=== PATIENT | female | born 1990 | race African-American/Black ===

== ENCOUNTER 2018-01-03 18:12 | Inpatient (IN) | payer OTHER ==
[~2018-01-03] VITALS: Ht 167.6 cm; Wt 73.0 kg
[~2018-01-03 18:12] MED LIST: FERRALET 90 TA1 EACH PO; IBUPROFEN800 MG PO; NATURAL IRON65 MG PO; PERCOCET 325 MG1 TA2 PO; PRENATAL TABLE1 EAC2 PO; PRENATAL1 TA2 PO; ROBAXIN-750750 M1 PO; TAMIFLU75 M1 PO; ZOFRAN ODT4 M1 SL
[2018-01-03 21:51] LABS: ABSOLUTE BASOPHIL COUNT 0 /CUMM (0.0-0.2); ABSOLUTE EOSINOPHIL COUNT 0.1 /CUMM (0.0-0.7); ABSOLUTE GRANULOCYTE CT 5.8 /CUMM (1.4-6.5); ABSOLUTE MONOCYTE COUNT 0.7 /CUMM (0.10-0.60); BASOPHIL % 0.3 % (0.0-2.0); EOSINOPHIL % 1.1 % (0-5); GRANULOCYTE % 66.6 % (42.2-75.2); HEMATOCRIT 26.7 % (37-47); MEAN CORPUSCULAR HGB CONC 32.4 G/DL (33.0-37.0); MEAN CORPUSCULAR VOLUME 83.3 FL (81.0-99.0); MEAN PLATELET VOLUME 9.5 FL (7.4-10.4); PLATELET COUNT 165 /CUMM (130-400); RBC DISTRIBUTION WIDTH 16.4 % (11.5-14.5); RED BLOOD CELL CT 3.21 /CUMM (4.20-5.40); WHITE BLOOD CELL COUNT 8.6 /CUMM (4.8-10.8)
[2018-01-03 23:35] VITALS: BP 114/59
--- NOTE | 2018-01-04 13:25 | Operative Report ---
Operative/Inv Procedure Report Surgery Date: 01/04/18 Name of Procedure: rEPEAT LOW FLAP TRANSVERSE SECTIONVIA pFANNENSTIEL SKIN INCISION LYSIS OF ADHESIONS Pre-Operative Diagnosis: PREVIOUS SECTION 36 WEEKS LABOR Post-Operative Diagnosis: SAME ADHESIONS Estimated Blood Loss: 500 Surgeon/Dredge Or Barge Shore Hand: Latasha Segundo MD and Jordy Grewal MD Anesthesia: block Operative/Procedure Note Note: Patient was having the operating room placed on position after adequate anesthesia patient placed in dorsal supine position the vagina from dorsal fashion bladder was catheterized examination anesthesia performed at this point patient was returned spine position skin testing was performed and found to be adequate for surgery patient tolerated that well the abdomen was prepped and draped so fashion through a old Pfannenstiel skin incision skin was cut was carried down to rectus fascia using a Bovie on the rectus sheath was dissected bluntly as well as sharply peritoneal cavity was entered high into the abdomen place of adhesions were performed from the rectus sheath onto the peritoneum low blade the [place] was placed lower and incision the visceral peritoneum of the uterus was dissected anteriorly a bladder flap was developed well in the lower uterine segment the uterus was nicked into with the back of the knife on bladder blade had been replaced to protect the bladder the was delivered over the abdominal wall suction well until clear after on since removed field cord was doubly clamped and cut infant was handed laser engraver waiting delivering to aid in resuscitation since was delivered manually noted to be intact uses wiped clean with 2R last insurance free of adherent membranes uses oversewn running locking suture was indicated interrupted [id number] is well the uterus was on contracted using all intravenous Pitocin as well as intramyometrial Pitocin patient aren't that well all uses turned to abdominal cavity irrigated copious amounts once until clear interrupted [id number] hemostasis the abdomen was irrigated once again with copious amounts warm saline to ensure hemostasis peritoneum was reapproximated 0 fascia was reapproximated using 0 skin was reapproximated using britt at the end the case counts correct the urine was clear mother and infant transferred recovery room awake alert counts correct
[2018-01-05 08:09] LABS: ABSOLUTE BASOPHIL COUNT 0 /CUMM (0.0-0.2); ABSOLUTE EOSINOPHIL COUNT 0.2 /CUMM (0.0-0.7); ABSOLUTE GRANULOCYTE CT 7.7 /CUMM (1.4-6.5); ABSOLUTE LYMPH COUNT 1.4 /CUMM (1.2-3.4); ABSOLUTE MONOCYTE COUNT 0.8 /CUMM (0.10-0.60); BASOPHIL % 0.3 % (0.0-2.0); GRANULOCYTE % 75.7 % (42.2-75.2); MEAN CORPUSCULAR HGB 27.5 PG (27.0-31.0); MEAN CORPUSCULAR HGB CONC 32.7 G/DL (33.0-37.0); MEAN CORPUSCULAR VOLUME 84.1 FL (81.0-99.0); MEAN PLATELET VOLUME 10.4 FL (7.4-10.4); PLATELET COUNT 156 /CUMM (130-400); RBC DISTRIBUTION WIDTH 16.4 % (11.5-14.5); RED BLOOD CELL CT 3.97 /CUMM (4.20-5.40); WHITE BLOOD CELL COUNT 10.2 /CUMM (4.8-10.8)
[2018-01-05 08:41] LABS: HEMATOCRIT 33.4 % (37-47)
--- NOTE | 2018-01-05 09:32 | PN- Post Delivery/GYN ---
Subjective Subjective: NO C/O; BOTTLWE FEEDING Review of Systems: NEG Objective Last 24 Hrs of Vital Signs/I&O VSS Physical Exam: FF INCISION C/D/I EXT NT Assessment/Plan Assessment/Plan S/P RC/S POD1 STABLE INCREASE ACTIVITY ADVANCE DIET D/C YOUNGBLOOD CIRC TOMORROW Problem List: 1.
--- NOTE | 2018-01-06 18:10 | PN- Post Delivery/GYN ---
Subjective Subjective: no c/o Review of Systems: neg Objective Last 24 Hrs of Vital Signs/I&O vss Physical Exam: incision c/d/i ff ext nt Assessment/Plan Assessment/Plan s/p c/s pod 2 circ Problem List: 1.
[2018-01-06] MEDS ORDERED: IBUPROFEN800 M1 PO (18:12)
[2018-01-06] MEDS ORDERED: DOCUSATE SODIU100 M3 PO (18:12)
[2018-01-06] MEDS ORDERED: PERCOCET 5-3251 EACH PO (18:12)
--- NOTE | 2018-01-09 09:02 | History & Physical Pre-Op ---
General Information and HPI History of Present Illness: The patient is a 27-year-old 2 para 1 at 37 weeks gestation who presents in active labor. She has a previous and desires repeat elective C- section. care is complete with Dr. Welch and noncontributory. Allergies/Medications Allergies: Coded Allergies: No Known Allergies (01/03/18) Home Med list Docusate Sodium 100 MG CAPSULE 100 MG PO BID PRN STOOL SOFTENER Ibuprofen 800 MG TABLET 800 MG PO Q6P PRN UTERINE CRAMPING Iron Carb,Gl/FA/B12/C/Docusate (Ferralet 90 Tablet) 90 MG-1 MG-12 MCG-120 MG-50 MG TABLET 1 TAB PO DAILY SUPPLEMENT (Reported) Oxycodone HCl/Acetaminophen (Percocet 5-325 MG Tablet) 5 MG-325 MG TABLET 1 TAB PO Q4P PRN PAIN SCALE 4-6 (MODERATE) Past History Medical History Neurological: NONE EENT: NONE Cardiovascular: NONE Respiratory: NONE Gastrointestinal: NONE Hepatic: NONE Renal: NONE Musculoskeletal: NONE Psychiatric: NONE Endocrine: NONE Blood Disorders: NONE Cancer(s): NONE 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 EENTM: Reports: no symptoms. Cardiovascular: Reports: no symptoms. Respiratory: Reports: no symptoms. GI: Reports: see HPI. Genitourinary: Reports: see HPI. Musculoskeletal: Reports: see HPI. Skin: Reports: no symptoms. Neurological/Psychological: Reports: no symptoms. Hematologic/Endocrine: Reports: no symptoms. Immunologic/Allergic: Reports: no symptoms. All Other Systems: Reviewed and Negative Exam & Diagnostic Data Last 24 Hrs of Vital Signs/I&O vss Physical Exam: HEENT: Normocephalic atraumatic Chest: Clear to auscultation Cardiovascular: Normal S1, S2 Abdomen: Gravid estimated weight 6 pounds Extremities: No clubbing cyanosis or edema Assessment/Plan Assessment/Plan: Active labor at term previous Plan: Repeat section As Ranked By This Provider Problem List: 1.
--- NOTE | 2018-01-09 09:04 | Surgical Discharge Summary ---
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 Faroese Review of Systems: Date of Hospital Course Course Attending Physician: Kenroy Welch MD Primary Care Physician: Patient Has No Primary Care Dr Hospital Course: The patient was admitted in active labor. She had a history of previous C- section and desired repeat elective and did not desire trial of labor. She was taken for repeat section without complication and sent to recovery in good condition. Postoperative day #1 the patient had no complaints. She was afebrile and her vital signs are stable. Her Us was discontinued her diet was advance her activity was increased. H&H returned stable. On postoperative day #2 the patient was not breast-feeding she was tolerating a regular diet voiding and ambulating. Postoperative day #3 the patient was discharged home. Allergies: Coded Allergies: No Known Allergies (01/03/18) Disposition Summary Disposition Principal Diagnosis: Active labor Additional Diagnosis: Previous Discharge Disposition: home or self care Discharge Instructions General Discharge Information Code Status: Full Code Patient's Diet: Regular Patient's Activity: Photographs with weight restrictions Follow-Up Instructions/Appts: 1 week incision check Medications at Discharge Discharge Medications: Continue taking these medications: Iron Carb,Gl/FA/B12/C/Docusate (Ferralet 90 Tablet) 90 MG-1 MG-12 MCG-120 MG-50 MG TABLET 1 Tablet ORAL DAILY Start taking the following new medications: Ibuprofen (Ibuprofen) 800 MG TABLET 800 Milligram ORAL EVERY SIX HOURS NEEDED as needed for UTERINE CRAMPING Qty = 36 No Refills Comments: Last Taken:01/07/18 Time:943 Oxycodone HCl/Acetaminophen (Percocet 5-325 MG Tablet) 5 MG-325 MG TABLET 1 Tablet ORAL EVERY 4 HOURS NEEDED as needed for PAIN SCALE 4-6 (MODERATE ) Qty = 16 No Refills Comments: Last Taken:01/07/18 Time:943 Docusate Sodium (Docusate Sodium) 100 MG CAPSULE 100 Milligram ORAL TWICE DAILY as needed for STOOL SOFTENER Qty = 60 No Refills Comments: Last Taken:01/06/18 Time:2143
== END 2018-01-07 11:47 | DRG 540 ==
LOC: CBCO 18:12 → GNO 21:30
PROVIDERS: Specialist
PROC: 30233N1 Transfusion of Nonautologous Red Blood Cells into Peripheral Vein, Percutaneous Approach (ICD-10-PCS; principal; 2018-01-04)
PROC: 10D00Z1 Extraction of Products of Conception, Low, Open Approach (ICD-10-PCS; principal; 2018-01-04)
DX: O34.211 Maternal care for low transverse scar from previous cesarean delivery (principal); Z3A.36 36 weeks gestation of pregnancy; Z37.0 Single live birth; O99.02 Anemia complicating childbirth
CPT/HCPCS: GNOP; 80307; 81001; 86920; 87086; 88307; G0378; G0463; J0131; J0595; J0690; J1200; J1650; J1885; J2270; J2310; J2765; J3105; J7120; P9016